=== PATIENT | male | born 1975 | race Caucasian/White ===

== ENCOUNTER 2016-06-17 18:29 | Emergency (ER) | payer MEDICAID ==
[~2016-06-17] VITALS: Ht 190.5 cm; Wt 88.5 kg
[2016-06-18 00:11] VITALS: BP 138/88
== END 2016-06-18 00:11 | disposition home or self-care (01) ==
LOC: ED 18:29
DX: L02.811 Cutaneous abscess of head [any part, except face] (principal); I10 Essential (primary) hypertension; E11.9 Type 2 diabetes mellitus without complications; E78.00 Pure hypercholesterolemia, unspecified; J45.909 Unspecified asthma, uncomplicated
CPT/HCPCS: 82962; J3490